=== PATIENT | male | born 1965 | race Hispanic/Latino ===

== ENCOUNTER 2024-04-11 10:20 | Emergency (ER) | payer OTHER ==
[~2024-04-11] VITALS: Ht 177.8 cm; Wt 102.1 kg
[2024-04-11 10:24] VITALS: PULSE 85; RESP 17; TEMP 98.6; O2SAT 100
[2024-04-11] MEDS ORDERED: CIPRO500 MG PO (10:30)
[2024-04-11 11:01] LABS: CLARITY,URINE CLEAR (CLEAR); COLOR,URINE YELLOW (YELLOW); LEUKOCYTE ESTERASE ,URINE NEGATIVE (NEGATIVE); PH,URINE 6 (5 - 7)
[2024-04-11 11:02] LABS: BILIRUBIN,URINE NEGATIVE (NEGATIVE); GLUCOSE, URINE >=1000 (NEGATIVE); KETONES,URINE 1+ (NEGATIVE); NITRITE,URINE NEGATIVE (NEGATIVE); PROTEIN,URINE DIPSTICK NEGATIVE (NEGATIVE); URINE UROBILINOGEN 0.2 mg/dL (0.2 - 1)
[2024-04-11 11:06] LABS: BACTERIA,URINE FEW /HPF; EPITHELIAL CELLS,URINE RARE /LPF; RBC,URINE 0-5 /HPF (0-5); WBC,URINE (MAN) 0-5 /HPF (0-5)
== END 2024-04-11 11:48 | disposition home or self-care (01) ==
LOC: ER 10:25
DX: R36.1 Hematospermia (principal); I10 Essential (primary) hypertension; E11.9 Type 2 diabetes mellitus without complications; E78.5 Hyperlipidemia, unspecified; H40.9 Unspecified glaucoma
CPT/HCPCS: 81001; 99284